=== PATIENT | female | born 1975 | race Caucasian/White ===

== ENCOUNTER 2022-11-07 05:42 | Emergency (ER) | payer BC ==
[2022-11-07] MEDS ORDERED: Acetaminophen/HYDROcodone 325-5 MG Tab PO ONE ×2 (06:18→07:48)
[2022-11-07 07:10] LABS: APPEARANCE,URINE CLOUDY (CLEAR); BILIRUBIN,URINE NEGATIVE (NEGATIVE); COLOR,URINE YELLOW (YELLOW); GLUCOSE,URINE NORMAL (NORMAL); KETONES,URINE NEGATIVE (NEGATIVE); LEUKOCYTE ESTERASE,URINE MODERATE (NEGATIVE); NITRITE,URINE NEGATIVE (NEGATIVE); OCCULT BLOOD,URINE LARGE (NEGATIVE); PROTEIN,URINE NEGATIVE (NEGATIVE); UROBILINOGEN,URINE NORMAL (NEGATIVE)
[2022-11-07 07:11] LABS: BACTERIA,URINE FEW (NS); CALCIUM OXALATE CRYSTALS,URINE FEW (NS); MUCUS,URINE MODERATE (NS); RBC,URINE 50-75 (0-5); SQUAMOUS EPITHELIAL CELLS,UR FEW (NS,R,O)
[2022-11-07] MEDS ORDERED: Ondansetron 4 MG Tab.DIS PO ONE (07:16)
[2022-11-07] MEDS ORDERED: Ketorolac 30 MG/ML SDV IM ONE (07:48)
== END 2022-11-07 09:14 | disposition home or self-care (01) ==
LOC: FB.ED 05:42
DX: N13.2 Hydronephrosis with renal and ureteral calculous obstruction (principal); N39.0 Urinary tract infection, site not specified
CPT/HCPCS: 74176; 81001; 87086; 87088; 87186; 96372; 99284; A9270; J1885; Q0162

== ENCOUNTER 2023-07-13 16:54 | Emergency (ER) | payer BC, MEDICAID ==
[2023-07-13] MEDS ORDERED: HYDROmorphone 2 MG/ML SDV IVPUSH ONE (17:08)
[2023-07-13] MEDS ORDERED: Sodium Chloride 0.9% 10 ML Syringe FLUSH PRN (17:08)
[2023-07-13] MEDS ORDERED: Sodium Chloride 0.9% 1,000 ML IV ONE (17:08)
[2023-07-13] MEDS ORDERED: Ondansetron 4 MG/2 ML SDV IVPUSH ONE (17:08)
[2023-07-13 17:35] LABS: BASOPHILS PERCENT AUTO 0.3 % (0.2-1.5); EOSINOPHILS ABSOLUTE AUTO 0.2 x10-3/uL (0.0-0.8); EOSINOPHILS PERCENT AUTO 2.3 % (0.6-8.1); HEMATOCRIT 34.3 % (34.2-48.2); HEMOGLOBIN 11.6 g/dL (11.4-15.5); LYMPHOCYTES ABSOLUTE AUTO 2.4 x10-3/uL (1.0-4.4); LYMPHOCYTES PERCENT AUTO 32.9 % (18.4-52.1); MEAN CORPUSCULAR HGB CONC 33.9 g/dL (31.9-34.8); MEAN CORPUSCULAR VOLUME 82.6 fL (76.7-100.5); MEAN PLATELET VOLUME 8.3 fL (7.1-12.4); MONOCYTES ABSOLUTE AUTO 0.5 x10-3/uL (0.3-1.0); MONOCYTES PERCENT AUTO 7.5 % (4.4-15.7); NEUTROPHILS ABSOLUTE AUTO 4.1 x10-3/uL (1.5-6.3); PLATELET COUNT,PLT 261 x10(3)uL (151-488); RED BLOOD CELL COUNT 4.15 x10(6)uL (3.60-5.20); RED CELL DISTRIBUTION WIDTH 13.1 % (12.3-16.5); WHITE BLOOD CELL COUNT,WBC 7.2 x10-3/uL (3.0-10.3)
[2023-07-13 17:41] LABS: BLOOD UREA NITROGEN,BUN 13 mg/dL (7-18); BUN/CREATININE RATIO 16.3 (9-20); CALCIUM 8.5 mg/dL (8.6-10.2); CARBON DIOXIDE,CO2 23 mmol/L (21-32); CHLORIDE,CL 104 mmol/L (100-110); CREATININE 0.8 mg/dL (0.55-1.02); EST CRCL DRUG DOSING (CG) 82.26 mL/min; ESTIMATED GFR 92 mL/min (>60); GLUCOSE RANDOM 108 mg/dL (80-116); SODIUM,NA 137 mmol/L (135-145)
[2023-07-13 17:51] LABS: BILIRUBIN,URINE NEGATIVE (NEGATIVE); GLUCOSE,URINE NORMAL (NORMAL); KETONES,URINE NEGATIVE (NEGATIVE); LEUKOCYTE ESTERASE,URINE NEGATIVE (NEGATIVE); NITRITE,URINE NEGATIVE (NEGATIVE); OCCULT BLOOD,URINE LARGE (NEGATIVE); PROTEIN,URINE TRACE mg/dL (NEGATIVE); UROBILINOGEN,URINE NORMAL (NEGATIVE)
[2023-07-13 18:00] LABS: APPEARANCE,URINE SLIGHTLY CLOUDY (CLEAR); BACTERIA,URINE FEW (NS); CALCIUM OXALATE CRYSTALS,URINE FEW (NS); COLOR,URINE YELLOW (YELLOW); SQUAMOUS EPITHELIAL CELLS,UR OCCASIONAL (NS,R,O); WBC,URINE 0-5 (0-5)
[2023-07-13] MEDS ORDERED: Metoclopramide 10 MG/2 ML SDV IVPUSH ONE (18:10)
== END 2023-07-13 20:22 | disposition home or self-care (01) ==
LOC: FB.ED 16:54
DX: N23 Unspecified renal colic (principal); N13.2 Hydronephrosis with renal and ureteral calculous obstruction; T40.605A Adverse effect of unspecified narcotics, initial encounter
CPT/HCPCS: 74176; 80048; 81001; 81025; 85025; 86140; 93005; 93010; 96361; 96374; 96375; 99284; 99284-25; J1170; J2405; J2765; J3490; J7030